=== PATIENT | male | born 1940 | race Two or more races ===

== ENCOUNTER 2019-06-30 15:07 | Emergency (ER) | payer OTHER ==
[~2019-06-30] VITALS: Ht 165.1 cm; Wt 77.1 kg
[2019-06-30 15:24] VITALS: Ht 165.1 cm; Wt 77.1 kg
[2019-06-30 17:47] LABS: BASOPHIL % 0.3 % (0-2); PLATELET COUNT 373 x10^3mcL (130-400)
[2019-06-30 17:48] LABS: RED CELL DISTRIBUTION WIDTH 21.3 % (11.5-14.5)
[2019-06-30 18:00] LABS: CARBON DIOXIDE 26.2 mmol/L (21-32); CHLORIDE SERUM 101 mmol/L (98-107); CREATININE SERUM 0.9 mg/dL (0.7-1.3); GLUCOSE SERUM 92 mg/dL (74-106); POTASSIUM SERUM 3.4 mmol/L (3.5-5.1); SODIUM SERUM 135 mmol/L (136-145)
[2019-06-30 18:11] LABS: ALKALINE PHOSPHATASE 235 U/L (46-116); ALT/SGPT 63 U/L (16-63); AST/SGOT 53 U/L (15-37); BILIRUBIN TOTAL 0.9 mg/dL (0.20-1.00); LIPASE 211 IU/L (73-393); MAGNESIUM 2.2 mg/dL (1.8-2.4); TOTAL PROTEIN, SERUM 7.4 g/dL (6.4-8.2); rbc morphology (normal/abnorm) ABNORMAL (NORMAL)
[2019-06-30 18:14] LABS: ALBUMIN 1.6 g/dL (3.4-5.0); CHOLESTEROL 73 mg/dL (<200); HDL CHOLESTEROL 26 mg/dL (40-60)
[2019-06-30 18:35] LABS: microscopic required? YES; urine erythrocyte NEGATIVE (NEGATIVE)
[2019-06-30 18:44] LABS: AMPHETAMINE QUAL UR NONE DETECTED (See below)
[2019-06-30 21:27] VITALS: BP 119/47
== END 2019-06-30 21:27 | disposition home or self-care (01) ==
LOC: ED 15:07
PROVIDERS: Emergency Medicine
DX: D64.9 Anemia, unspecified (principal); E88.09 Other disorders of plasma-protein metabolism, not elsewhere classified; D72.829 Elevated white blood cell count, unspecified; R63.4 Abnormal weight loss
CPT/HCPCS: 82962; G0480; J3411; J3475; J3490; J7030

== ENCOUNTER 2019-07-18 11:00 | Inpatient (IN) | payer OTHER ==
[~2019-07-18] VITALS: Ht 172.7 cm; Wt 70.8 kg
--- NOTE | 2019-07-18 11:08 | NUR ---
PATIENT RECEIVED BY [facility] FOR GENERALIZED WEAKNESS. PT AAOX1, AWAKE BUT CONFUSED. BREATHING E/U, PT APPEARS DISCHEVELED, PT INCONTINENT, PANTS SOAKED WITH URINE. EKG GIVEN TO DR. FU. PTS CLOTHING REMOVED AND PLACED IN GOWN. PT PLACED ON ALL MONITORS FOR FURTHER OBSERVATION. WILL CONTINUE TO MONITOR.
--- NOTE | 2019-07-18 11:22 | NUR ---
LAB BEDSIDE DRAWING BLOOD PER MD ORDERS.
[2019-07-18 11:51] LABS: CALCIUM 8.2 mg/dL (8.5-10.1); CARBON DIOXIDE 27.4 mmol/L (21-32); CHLORIDE SERUM 98 mmol/L (98-107); CREATININE SERUM 1.1 mg/dL (0.7-1.3); GLUCOSE SERUM 137 mg/dL (74-106); POTASSIUM SERUM 3.8 mmol/L (3.5-5.1); SODIUM SERUM 133 mmol/L (136-145)
[2019-07-18 11:55] LABS: ALKALINE PHOSPHATASE 228 U/L (46-116); ALT/SGPT 47 U/L (16-63); AST/SGOT 40 U/L (15-37); TOTAL PROTEIN, SERUM 7.3 g/dL (6.4-8.2)
[2019-07-18 11:56] LABS: ALBUMIN 1.4 g/dL (3.4-5.0)
--- NOTE | 2019-07-18 12:00 | NUR ---
PATIENT LYING ON GURNEY. BREATHING E/U -- VSS WILL CONTINUE TO MONITOR.
[2019-07-18 12:48] LABS: PLATELET COUNT 460 x10^3mcL (130-400); RED CELL DISTRIBUTION WIDTH 21.6 % (11.5-14.5)
[2019-07-18 12:58] LABS: BAND NEUTROPHIL 0 % (0-10); BASOPHIL 0 % (0-2); MONOCYTE 3 % (0-7); SEGMENTED NEUTROPHILS 96 % (37-75)
[2019-07-18 12:59] LABS: PLATELET MORPHOLOGY PLATELETS INCREASED; rbc morphology (normal/abnorm) ABNORMAL (NORMAL)
--- NOTE | 2019-07-18 13:22 | NUR ---
REPLACED PULSE OX ON FINGER-- SATS LOW 80'S. PT PLACED ON 02 VIA NC/ 2 L CONTINOUS. SATS AT 93% .
--- NOTE | 2019-07-18 13:36 | NUR ---
STARTED IV SOLUTIONS PER MD ORDERS-- SEE EMR.
[2019-07-18 13:50] LABS: microscopic required? YES; urine erythrocyte TRACE (NEGATIVE)
--- NOTE | 2019-07-18 14:01 | NUR ---
ANTIBIOTIC THERAPY STARTED PER MD ORDERS. SEE EMR.
--- NOTE | 2019-07-18 14:12 | NUR ---
PATIENT JUST TAKEN TO CT- VSS, NAD NOTED. WILL CONTINUE TO MONITOR UPON RETURN.
--- NOTE | 2019-07-18 14:30 | NUR ---
PATIENT BACK FROM CT- VSS, NAD NOTED. RESTARTED FLUIDS.
--- NOTE | 2019-07-18 15:30 | NUR ---
PATIENT RESTING ON GURNEY IN A POSITION OF COMFORT. NO SS OF DISTRESS NOTED. WILL CONTINUE TO MONITOR.
--- NOTE | 2019-07-18 16:10 | NUR ---
CALLED AND SPOKE TO DR.THOMAS ISRAEL(OBGYN) TO UP RE-PREVENTIVE MEDICINE SPECIALIST CONSULT, HE SAID TO KEEP THE PT NPO FOR D&C, MADE HIM AWARE LAST MEAL WAS AT 10AM TODAY PER PT. PT HAD COMPLETED 1 UNIT OF PRBC DOWN IN E.R. AND MADE AWARE OF THIS AND HE SAID HE WANT THE SECOND UNIT TO BE TRANSFUSE TO PT PRIOR TO D&C PLAN TODAY. SAYS TO NOTIFY HIM ONCE 2ND UNIT OF PRBC IS COMPLETED. (HIDE SELECTOR) MADE AWARE OF PLAN FOR D&C TONIGHT PER . WILL CONT TO MONITOR.
--- NOTE | 2019-07-18 16:33 | NUR ---
REPORT PROVIDED TO ELICIA MATHIS FOR CONTINUED CARE OF PATIENT. VSS PRIOR TO TRANSFER. TRANSFER ACCOMPANIED BY ELICIA HURTADO AND TECH.
--- NOTE | 2019-07-18 16:34 | NUR ---
RECEIVED PT FROM ED VIA [facility], CAME IN DUE TO WEAKNESS. AAOX2 (PERSON, PLACE AND BIRTHDATE). ABLE TO FOLLOW SIMPLE COMMANDS. NO FACIAL DROOP/ARM DRIFT NOTED. LUNG SOUNDS DIMINISHED ON THE BASES, O2 SAT=95% ON 2LPM/NC. DENIES CHEST PAIN/PRESSURE. DENIES ABDOMINAL DISCOMFORT. W/ GUYANESE 16 SOLER CATHETER DRAINING W/ DARK YELLOW COLORED URINE. PT C/O PENILE DISCOMFORT DUE TO SOLER CATHETER. W/ DISCOLORATIONS ON THE BILATERAL KNEES, DIONE. GENERALIZED WEAKNESS. IV SITE ON THE LEFT WRIST GAUGE 20, PATENT AND INTACT. RECEIVED PT FROM ED W/ NS AND VANCOMYCIN ONGOING. PT'S FRIEND VALE AT BEDSIDE. SIDE RAILS UPX2. CALL LIGHT ON REACH. HOB ELEVATED AT 30 DEG. BED ALARM ON. ENDORSED TO PRIMARY NURSE KEREN FOR CONTINUITY OF CARE
--- NOTE | 2019-07-18 16:40 | NUR ---
ASSUMED CARE OF PATIENT. PT AWAKE, ALERT CALM AND COOPERATIVE. NO ACUTE DISTRESS OR DISCOMFORT NOTED AT THIS TIME. SAFETY MEASURES IN PLACE, BED LOW AND LOCKED. CALL LIGHT WITHIN REACH.
[2019-07-18 16:54] VITALS: BP 120/51
[2019-07-18 17:01] VITALS: Ht 172.7 cm; Wt 70.8 kg
--- NOTE | 2019-07-18 18:51 | NUR ---
FLU AND PNA VACCINE ADMINISTERED ORDERED. PT TOLERATED WELL. PNA ADMINISTERED ON RIGHT ARM. FLU ON THE LEFT ARM. PT STABLE AT THIS TIME. WILL CONTINUE TO MONITOR AND ENDORSE CARE TO ORTHOTIC TECHNICIAN.
[2019-07-18 20:00] VITALS: BP 117/43
--- NOTE | 2019-07-18 20:52 | NUR ---
PATIENT RECEIVED IN BED EARLIER VIA BEDSIDE HANDS OFF AND INTRODUCTION, PATIENT SEEMS COMFORTABLE, FAMILY AT BS VISITING, [place] SPEAKING FAMILY ABLE TO HELP WITH INTERPRETATION, SPEECH IS CLEAR. PATIENT IS ORIENTED 2, FORGETFUL AND CONFUSED AND DISORIENTED TO PLACE, RE-ORIENTED. IV SITE TO LFA PATENT AND INTACT SITE NO SIGN OF REDNESS NOR INFILTTRATION. SOLER CATHETER DRAINING YELLOW UA, STAT LOCK INTACT TO LEFT ANTERIOR THIGH, NO DEPENDENT LOOPS AND SOLER BAG OFF THE FLOOR. SAFETY/FALL PRECAUTIONS MAINTAINED. BED ALARM ON, PATIENT INSTRUCTED AND ADVICED TO CALL NURSE WHEN NEEDS ARISES, CALL LIGHT PLACED IN REACH. WILL CONTINUE TO MONITOR.
--- NOTE | 2019-07-18 22:06 | NUR ---
ORDER FROM DR. GARCIA TO APPLY HEDIS ANALYST ON PATIENT. APPLIED TELE #5. NSR WITH FIRST DEGREE AV BLOCK.
--- NOTE | 2019-07-18 22:51 | NUR ---
ENDORSED CONTINUITY OF CARE TO ARABELLA RUBI.
--- NOTE | 2019-07-19 01:49 | NUR ---
RESUMED CARE FROM ARABELLA RUBI. PT IS SLEEPING BUT EASILY AROUSABLE WHEN SPOKEN TO. BREATHING IS EVEN AND UNLABORED. NO SIGNS OF RESP DISTRESS. DENIES PAIN AT THIS TIME. WILL CONTINUE TO MONITOR. BED IN LOWEST POSITION. BED ALARM ON. CALL LIGHT WITHIN REACH.
--- NOTE | 2019-07-19 03:12 | NUR ---
DR GARCIA HERE,SEEN AND SPOKE TO PATIENT WITH SHRUTI FENG.
[2019-07-19 06:00] VITALS: BP 104/54
--- NOTE | 2019-07-19 07:27 | NUR ---
PT SLEPT IN INTERVALS THROUGHOUT SHIFT WITH NO ACUTE EVENTS OVERNIGHT. COMFORT AND SAFETY MEASURES MAINTAINED. ALL NEEDS ASSESSED AND ATTENDED TO. ENDORSED CARE TO DAY SHIFT NURSE, JULIO C RUBI.
--- NOTE | 2019-07-19 07:30 | NUR ---
RECEIVED PT IN BED. ASSESSED AND DOCUMENTED. DENIES ANY PAIN. NO SOB NOTED THIS TIME. SAFTEY PRECAUTIONS ARE IN PLACE. WILL MONITOR.
[2019-07-19 09:20] VITALS: BP 100/45
--- NOTE | 2019-07-19 10:00 | NUR ---
TRIED TO CALL PT'S MULTIPLE TIME FOR CONSENT BUT NOT ANSWERING, TRIED PT'S DAUGHTER ALSO MULTIPLE TIME BUT GETTING. THEN TRIED TO CALL HIS FRIEND BUT NOT ANSWERING. CALLED OR NURSE BRANDIE AND INFORMED HIM ABOUT THAT AND GAVE REPORT ABOUT PT. ABOUT THE SITUATIONS. INFORED OR NURSE BRANDIE ABOUT NO PT/PTT ORDERED, HE SAID HE WILL ASK AND IF NEED IT HE WILL ORDER. SABA WIPE DONE. PT IS CONFUSED AND DISORIENTED.
--- NOTE | 2019-07-19 10:30 | NUR ---
PT'S FRIEND( PERSON FROM HIS LATTER DAY) CAME TO VISIT HIM BUT HE DOESNOT KNOW ANYTHING ABOUT HIS FAMILY AND HE DOESNOT HAVE ANY LEGAL RIGHT REGARDING HIM. OR NURSE BRANDIE AND AWARE ABOUT THAT.
[2019-07-19 12:20] VITALS: BP 105/47
--- NOTE | 2019-07-19 13:00 | NUR ---
PT IS CONFUSED AND TRY TO PULL OUT IV AND SOLER AND ALSO TRYING TO GET OUT OF BED. TALK TO THE PT AND EMOTIONAL SUPPORT GIVEN. BED ALARM ON. PT IS GETTING CALM AFTER TALKING TO HIM AND STAYING IN THE BED. CLOSELY MONITERING THE PT. DENIES ANY PAIN, STABLE.
--- NOTE | 2019-07-19 15:50 | NUR ---
PT'S CAME TO SAW THE PT. SIGNED SURGERY CONSENT. CALLED AND INFORMED OR NURSE BRANDIE ABOUT CONSENT. HE SAID HE WILL CONTACT AND CALL BACK. PT REMAINS CONFUSED BUT STABLE.
--- NOTE | 2019-07-19 15:55 | NUR ---
PT'S SAID THEY ARE STILL LEGALLY BUT THEY ARE , NOT LIVE TOGETHER, PT LIVES ALONE. SHE SAID SHE STILL HAVE THE LEGAL RIGHT OF TAKING DECISION ABOUT HIM AND SIGNING THE CONSENT. PT STILL CONFUSED.
--- NOTE | 2019-07-19 17:00 | NUR ---
SPOKE WITH AND SHE SAID SHE WILL DO BIOPSY TOMORROW AFTER NOON AND WILL CALL OR TO SCHEDULE.
[2019-07-19 17:39] VITALS: BP 109/50
--- NOTE | 2019-07-19 19:20 | NUR ---
PT RESTING IN BED COMFORTABLT. STABLE. DENIES PAIN. GAVE REPORT TO MUSIC PUBLICIST NURSE.
--- NOTE | 2019-07-19 19:30 | NUR ---
RECEIVED REPORT FROM DAY SHIFT RN. PT RESTING IN BED. AA&O X2 (PERSON/PLACE). NO SOB ON O2 2L VIA NC. BREATHING EVEN AND UNLABORED. NO C/O PAIN. NO DISTRESS NOTED. IV TO LEFT WRIST, D5NS INFUSING. SAFETY MEASURES IN PLACE. BED IN LOWEST POSITION. SIDE RAILS UP X2. DEMONSTRATED HOW TO USE THE CALL LIGHT. FRIENDS AT BEDSIDE.
[2019-07-19 20:16] LABS: CALCIUM 7.6 mg/dL (8.5-10.1); CARBON DIOXIDE 25.4 mmol/L (21-32); CHLORIDE SERUM 103 mmol/L (98-107); CREATININE SERUM 0.9 mg/dL (0.7-1.3); GLUCOSE SERUM 118 mg/dL (74-106); POTASSIUM SERUM 3.4 mmol/L (3.5-5.1); SODIUM SERUM 135 mmol/L (136-145)
[2019-07-19 20:32] LABS: PLATELET COUNT 407 x10^3mcL (130-400); RED CELL DISTRIBUTION WIDTH 21.2 % (11.5-14.5)
[2019-07-19 20:50] VITALS: BP 116/58
[2019-07-19 20:56] LABS: BAND NEUTROPHIL 4 % (0-10); METAMYELOCTE 2 % (0-2); MONOCYTE 3 % (0-7); MYELOCYTE 1 % (0-2); SEGMENTED NEUTROPHILS 87 % (37-75); rbc morphology (normal/abnorm) ABNORMAL (NORMAL)
[2019-07-19 20:57] LABS: PLATELET MORPHOLOGY PLATELETS NORMAL
--- NOTE | 2019-07-20 04:46 | NUR ---
PT RESTED IN INTERVALS DURING SHIFT. NO SOB ON O2 2L VIA NC. NO C/O PAIN. FREQUENT REMINDER TO KEEP NASAL CANNULA ON. IV TO LEFT WRIST PATENT AND INTACT. NPO SINCE MIDNIGHT FOR RIGHT GROIN MASS BIOPSY TODAY. SIGNED CONSENT IN THE CHART. CHECKLIST STARTED. SAFETY MEASURES MAINTAINED. ALL NEEDS ATTENDED TO. CALL LIGHT WITHIN REACH. WILL CONTINUE TO MONITOR AND ENDORSE CONTINUITY OF CARE TO ONCOMING RN.
[2019-07-20 05:21] VITALS: BP 114/59
[2019-07-20 06:13] LABS: CALCIUM 7.3 mg/dL (8.5-10.1); CARBON DIOXIDE 25.3 mmol/L (21-32); CHLORIDE SERUM 103 mmol/L (98-107); CREATININE SERUM 0.8 mg/dL (0.7-1.3); GLUCOSE SERUM 102 mg/dL (74-106); POTASSIUM SERUM 3.6 mmol/L (3.5-5.1); SODIUM SERUM 136 mmol/L (136-145)
[2019-07-20 06:14] LABS: PLATELET COUNT 398 x10^3mcL (130-400)
[2019-07-20 07:21] LABS: RED CELL DISTRIBUTION WIDTH 21.7 % (11.5-14.5)
--- NOTE | 2019-07-20 07:30 | NUR ---
RECEIVED PT IN BED. ASSESSED AND DOCUMENTED. DENIES ANY PAIN. PT IS CONFUSED AND TRY TO GET OUT OF BED AND PULL OUT HIS IV. EMOTIONAL SUPPORT GIVEN, AFTER THAT PT CALM DOWN AND STAYING IN THE BED. WILL REINSERT IV SOON. SAFTEY PRECAUTIONS ARE IN PLACE. BED ALARM ON. WILL MONITOR.
--- NOTE | 2019-07-20 09:00 | NUR ---
PT RESTING IN BED COMFORTABLY. INSERTED NEW IV TO LH WITH GOOD BLOOD RETURN. STABLE. DENIES ANY PAIN.
[2019-07-20 10:07] VITALS: BP 107/60
[2019-07-20 11:25] LABS: BAND NEUTROPHIL 9 % (0-10); BASOPHIL 0 % (0-2); METAMYELOCTE 1 % (0-2); MONOCYTE 4 % (0-7); PLATELET MORPHOLOGY LARGE PLATELET SEEN; SEGMENTED NEUTROPHILS 81 % (37-75); rbc morphology (normal/abnorm) ABNORMAL (NORMAL); tear drop cell (dacryocyte) 1+
[2019-07-20 12:44] VITALS: BP 115/59
--- NOTE | 2019-07-20 14:30 | NUR ---
BIOPSY RT INGUINAL MASS PROCEDURE WAS CANCELLED BY SURGEON. INFORMED PT AND FAMILY. AWARE. PROVIDED LUNCH AND ATE. STABLE. DENIES ANY PAIN. SOLER CATH REMOVED PER ORDER. PT COOPERATED WELL.
--- NOTE | 2019-07-20 15:00 | NUR ---
PT VOIDED AFTER SOLER REMOVED. STABLE. DENIES ANY PAIN.
[2019-07-20 17:01] VITALS: BP 109/52
--- NOTE | 2019-07-20 18:00 | NUR ---
PT RESTING IN BED COMFORTABLY. HAD DINNER. DENIES ANY PAIN. STABLE.
--- NOTE | 2019-07-20 19:30 | NUR ---
RECEIVED REPORT FROM DAY SHIFT RN. PT RESTING IN BED. AA&O X2, PERSON/PLACE. REORIENTED TO TIME. BREATHING EVEN AND UNLABORED ON ROOM AIR. NO C/O PAIN. IV TO LEFT HAND, D5NS INFUSING. SAFETY MEASURES IN PLACE. BED IN LOWEST POSITION. SIDE RAILS UP X2. INSTRUCTED PT TO CALL IF HE NEEDS TO GET OUT OF BED. DEMONSTRATED HOW TO USE THE CALL LIGHT FOR ASSISTANCE. CALL LIGHT WITHIN REACH.
[2019-07-20 22:32] VITALS: BP 111/54
--- NOTE | 2019-07-21 05:13 | NUR ---
PT RESTED IN INTERVALS THROUGHOUT SHIFT. NO SOB ON O2 2L VIA NC. BREATHING EVEN AND UNLABORED. PT REMAINS FORGETFUL. NEED TO REMIND PT FREQUENTLY TO USE THE CALL LIGHT FOR ASSISTANCE WHEN HE WANTS TO GET OUT OF BED. SAFETY MEASURES MAINTAINED. BED IN LOWEST POSITION. SIDE RAILS UP X2. CALL LIGHT WITHIN REACH. BED ALARM ON. WILL CONTINUE TO MONITOR AND ENDORSE CONTINUITY OF CARE TO ONCOMING RN.
[2019-07-21 06:27] VITALS: BP 111/53
[2019-07-21 07:00] LABS: PLATELET COUNT 335 x10^3mcL (130-400)
[2019-07-21 07:04] LABS: CALCIUM 7.4 mg/dL (8.5-10.1); CARBON DIOXIDE 24.7 mmol/L (21-32); CHLORIDE SERUM 103 mmol/L (98-107); CREATININE SERUM 0.8 mg/dL (0.7-1.3); GLUCOSE SERUM 84 mg/dL (74-106); POTASSIUM SERUM 3.4 mmol/L (3.5-5.1); SODIUM SERUM 137 mmol/L (136-145)
[2019-07-21 07:12] LABS: RED CELL DISTRIBUTION WIDTH 21.3 % (11.5-14.5)
[2019-07-21 07:20] LABS: BAND NEUTROPHIL 0 % (0-10); BASOPHIL 0 % (0-2); MONOCYTE 2 % (0-7); SEGMENTED NEUTROPHILS 98 % (37-75)
[2019-07-21 07:21] LABS: PLATELET MORPHOLOGY PLATELETS INCREASED; rbc morphology (normal/abnorm) ABNORMAL (NORMAL)
--- NOTE | 2019-07-21 07:30 | NUR ---
RECEIVED HAND OFF REPORT FROM NIGHT NURSE. PATIENT SITTING UP IN BED AT THIS TIME USING URINAL. PATIETN A/OX2 (PERSON, PLACE) BUT MEMORY SEEMS POOR. IRISH SPEAKING MAINLY. FOLLOWING BASIC COMMANDS, SPEECH CLEAR. DENIES CHEAT PAIN AT THIS TIME. LUNGS ARE DEMINISHED IN BASES ON 2L O2 VIA NC. GENERALIZED WEAKNESS, PENDING EVAL. NO WOUNDS ON SKIN, DENEIS PAIN. IV TO LEFT WRIST INFUSING WELL WITH D5NS. PATIENT HAD SURGERY TO BIOPSY MASS IN RIGHT GROIN BUT CANCELLED DUE TO REPORT THAT PATIENT CAN FOLLOW UP OUTPATIENT. CALL LIGHT WITHIN REACH, BED IN LOWEST POSIITON WITH BED ALARM ON
[2019-07-21 08:40] VITALS: BP 107/48
--- NOTE | 2019-07-21 10:53 | NUR ---
ASSISTED PATIENT TO RESTROOM, GAIT STEADY FOR THE SHORT DISTANCE, CHRISTIANO ROSS SAYS THAT EVEAL WAS DISCUSSED BUT HAS NOT BEEN ENTERED IN CHART. WILL FOLLOW UP WITH [facility] CALL LIGHT WITHIN REACH OF PATIENT, BED ALARM ON
[2019-07-21 13:00] VITALS: BP 124/47
--- NOTE | 2019-07-21 13:04 | NUR ---
PATIENT AND FRIEND AT BEDSIDE. UPDATED FAMILY ON PATIENT CONDITION. INFORMED THEM THAT SURGERY WAS NOT DONE AND CAN BE DONE OUTPATIENT. PENDING SNF PLACEMENT. WILL HAVE TO FOLLOW UP WITH DR GARCIA WHEN HE ARRIVES.
--- NOTE | 2019-07-21 15:43 | NUR ---
DR GARCIA STATED PATIENT IS CLEAR TO BE DISCHARGED. CASE MANAGEMENT FOUND A SNF TO TAKE PATIENT, TRANSFER IS ON WILL CALL. CASE MANAGEMENT IS CALLING TO INFORM HER. WILL PREPARE PATIENT FOR DISCHARGE AND TRANSFER.
[2019-07-21 16:55] VITALS: BP 126/52
--- NOTE | 2019-07-21 18:49 | NUR ---
CALLED REPORT TO ITALIA AT [facility]. ANSWERED ALL QUESTIONS AND PROVIDED AUTHORIZATION NUMBER. RUBBER MOLDER SHCEDULED FOR 8PM WITH ADAM
--- NOTE | 2019-07-21 19:41 | NUR ---
GAVE REPORT TO NIGHT NURSE PATIENT READY FOR DISCHARGE, ENDORSED NEED TO HAVE SIGN TRANSFER CONSENT
== END 2019-07-21 20:15 | DRG 391 ==
LOC: ED 11:00 → MU 15:22 → DU 15:22 → MU 16:34 → DU 21:58
PROVIDERS: Emergency Medicine; ADMIT Internal Medicine Pulmonary Disease
DX: R19.03 Right lower quadrant abdominal swelling, mass and lump (principal); E43 Unspecified severe protein-calorie malnutrition; R59.0 Localized enlarged lymph nodes; D72.829 Elevated white blood cell count, unspecified; F03.90 Unspecified dementia, unspecified severity, without behavioral disturbance, psychotic disturbance, mood disturbance, and anxiety; Z68.24 Body mass index [BMI] 24.0-24.9, adult
CPT/HCPCS: 90658; 90732; 97116-GP; G0378; G0480; J0696; J3370; J7030; J7040; J7042; J7060; Q9967